=== PATIENT | male | born 1965 | race Caucasian/White ===

== ENCOUNTER 2020-04-07 00:28 | Inpatient (IN) | payer MEDICAID ==
[~2020-04-07] VITALS: Ht 172.7 cm; Wt 90.7 kg
[2020-04-07] MEDS ORDERED: SODIUM CHLORIDE 0.9% 1,000 ML IV ONE (01:01)
[2020-04-07 01:18] LABS: BASOPHILS % 1.4 % (0.0-2.0); EOSINOPHILS % 0.6 % (0.0-5.0); HEMATOCRIT. 39.5 % (42.0-52.0); HEMOGLOBIN. 13.4 g/dL (14.0-18.0); LYMPHOCYTES % 27.6 % (20.0-50.0); MEAN CORPUSCULAR HEMOGLOBIN 30.7 pg (28.0-32.0); MEAN CORPUSCULAR VOLUME 90.4 fL (80.0-94.0); MEAN PLATELET VOLUME 8.6 fl (7.4-10.4); MONOCYTES % 10.1 % (2.0-8.0); NEUTROPHILS % 60.3 % (40.0-76.0); PLATELET 239 x1000/uL (130-400); RED BLOOD CELL COUNT 4.37 mill/uL (4.7-6.1); RED CELL DISTRIBUTION WIDTH 12.6 % (11.6-14.6)
[2020-04-07 01:25] LABS: CHLORIDE 102 mEq/L (98-107)
[2020-04-07 01:44] LABS: D-DIMER 0.35 mg/L FEU (<0.50); INR 1.1; PARTIAL THROMBOPLASTIN TIME 31.5 sec (23.4-31.0); PROTHROMBIN TIME 11.4 sec (9.6-11.0)
[2020-04-07] MEDS ORDERED: AZITHROMYCIN 500 MG in DEXT 5% WATER 250 ML IV ONE (03:00)
[2020-04-07] MEDS ORDERED: ENOXAPARIN 80MG/0.8ML SYR SUBCUT ONE (03:00)
[2020-04-07] MEDS ORDERED: CEFTRIAXONE 1 G PREMIX 50 ML IV ONE (03:00)
[2020-04-07 09:00] VITALS: BP 109/71
[2020-04-07 10:00] VITALS: BP 109/71
[2020-04-07] MEDS ORDERED: GLUCO8 PO (10:00)
[2020-04-07] MEDS ORDERED: SIMV-43 PO (10:00)
[2020-04-07] MEDS ORDERED: GUAIFENESIN 200MG/10ML SUGAR FREE UDC PO PRN (11:45)
[2020-04-07] MEDS ORDERED: DIPHENHYDRAMINE 50MG/ML VIAL IV PRN (11:45)
[2020-04-07] MEDS ORDERED: DEXTROSE 50% WATER 50ML SYRINGE IV PRN (11:45)
[2020-04-07] MEDS ORDERED: MAGNESIUM/ALUMINUM HYDROXIDE/SIMETHICONE 30ML UDC PO PRN (11:45)
[2020-04-07] MEDS ORDERED: ZOLPIDEM TARTRATE 5MG TABLET PO PRN (11:45)
[2020-04-07] MEDS ORDERED: ALBUTEROL 6.7GM HFA INHALER ORI PRN (11:45)
[2020-04-07] MEDS ORDERED: ONDANSETRON HCL 4MG/2ML INJ IV PRN (11:45)
[2020-04-07] MEDS ORDERED: ACETAMINOPHEN 325MG TABLET PO PRN ×2 (11:45)
[2020-04-07] MEDS ORDERED: CLONIDINE 0.1MG TABLET PO PRN (11:45)
[2020-04-07 12:00] VITALS: BP 110/69
[2020-04-07] MEDS: BLOOD SUGAR DIAGNOSTIC STRIP TEST SCH ×3 (12:40→21:17)
[2020-04-07] MEDS: INSULIN LISPRO 100 UNITS/ML SUBCUT SCH ×3 (12:58→21:42)
[2020-04-07] MEDS ORDERED: POTASSIUM CHLORIDE 20MEQ TABLET SR PO NR (13:30)
[2020-04-07] MEDS: ENOXAPARIN 80MG/0.8ML SYR SUBCUT NR ×2 (15:00→15:47)
[2020-04-07] MEDS: LEVOFLOXACIN 500MG PREMIX 100 ML IV SCH (15:20)
[2020-04-07] MEDS: SODIUM CHLORIDE 0.9% INJ 3ML FLUSH IVF SCH ×2 (15:48→21:17)
[2020-04-07 16:00] VITALS: BP 101/76
[2020-04-07] MEDS: METFORMIN HCL 500MG TABLET PO SCH (18:31)
[2020-04-07 20:00] VITALS: BP 116/81
[2020-04-07 20:49] LABS: CLARITY URINE CLEAR (CLEAR); COLOR URINE YELLOW (YELLOW); KETONES URINE TRACE (NEGATIVE); LEUKOCYTE ESTERASE URINE NEGATIVE (NEGATIVE); NITRITE URINE NEGATIVE (NEGATIVE); OCCULT BLOOD URINE NEGATIVE (NEGATIVE); PROTEIN URINE NEGATIVE (NEGATIVE); SPECIFIC GRAVITY URINE 1.015 (1.005-1.030); UROBILINOGEN URINE 0.2 E.U./dL (0.2-1.0)
[2020-04-07 21:04] LABS: *AMPHETAMINES SCREEN URINE NEGATIVE (NEGATIVE); *BARBITURATES SCREEN URINE NEGATIVE (NEGATIVE); *BENZODIAZEPINES SCREEN URINE NEGATIVE (NEGATIVE); *COCAINE SCREEN URINE NEGATIVE (NEGATIVE); METHADONE URINE SCREEN NEGATIVE (NEGATIVE); PHENCYCLIDINE URINE SCREEN NEGATIVE (NEGATIVE)
[2020-04-07 21:14] LABS: OPIATES URINE SCREEN NEGATIVE (NEGATIVE)
[2020-04-07] MEDS: ATORVASTATIN CALCIUM 40MG TABLET PO SCH (21:16)
[2020-04-07] MEDS: FAMOTIDINE 20MG TABLET PO SCH (21:16)
[2020-04-07] MEDS: GUAIFENESIN 600MG ER TABLET PO SCH (21:17)
[2020-04-07 21:18] LABS: CANNABINOID URINE SCREEN NEGATIVE (NEGATIVE)
[2020-04-08] VITALS: BP 110/78
[2020-04-08 04:00] VITALS: BP 100/67
[2020-04-08] MEDS: SODIUM CHLORIDE 0.9% INJ 3ML FLUSH IVF SCH ×3 (05:36→21:17)
[2020-04-08 08:00] VITALS: BP 120/80
[2020-04-08] MEDS: INSULIN LISPRO 100 UNITS/ML SUBCUT SCH ×5 (08:10→21:16)
[2020-04-08] MEDS: BLOOD SUGAR DIAGNOSTIC STRIP TEST SCH ×4 (08:16→21:16)
[2020-04-08] MEDS: METFORMIN HCL 500MG TABLET PO SCH ×2 (08:18→17:49)
[2020-04-08] MEDS: ASPIRIN 81MG EC TABLET PO SCH (08:18)
[2020-04-08] MEDS: GUAIFENESIN 600MG ER TABLET PO SCH ×2 (08:18→21:16)
[2020-04-08] MEDS: FAMOTIDINE 20MG TABLET PO SCH ×2 (08:18→21:16)
[2020-04-08] MEDS ORDERED: ENOXAPARIN 40MG/0.4ML SYR SUBCUT SCH (09:00)
[2020-04-08] MEDS ORDERED: ENOXAPARIN 80MG/0.8ML SYR SUBCUT SCH ×2 (09:00→21:00)
[2020-04-08 09:50] LABS: BASOPHILS % 0.6 % (0.0-2.0); EOSINOPHILS % 0.3 % (0.0-5.0); HEMATOCRIT. 41.4 % (42.0-52.0); HEMOGLOBIN. 14.4 g/dL (14.0-18.0); LYMPHOCYTES % 23.7 % (20.0-50.0); MEAN CORPUSCULAR HEMOGLOBIN 31.3 pg (28.0-32.0); MEAN CORPUSCULAR VOLUME 90.3 fL (80.0-94.0); MEAN PLATELET VOLUME 7.7 fl (7.4-10.4); MONOCYTES % 7.6 % (2.0-8.0); NEUTROPHILS % 67.8 % (40.0-76.0); PLATELET 270 x1000/uL (130-400); RED BLOOD CELL COUNT 4.59 mill/uL (4.7-6.1)
[2020-04-08 09:58] LABS: CHLORIDE 104 mEq/L (98-107)
[2020-04-08 13:08] VITALS: BP 114/76
[2020-04-08] MEDS: LEVOFLOXACIN 500MG PREMIX 100 ML IV SCH (13:16)
[2020-04-08 16:00] VITALS: BP 116/80
[2020-04-08 20:00] VITALS: BP 99/65
[2020-04-08] MEDS ORDERED: GUAIFENESIN 600MG ER TABLET PO SCH (21:00)
[2020-04-08] MEDS: ATORVASTATIN CALCIUM 40MG TABLET PO SCH (21:16)
[2020-04-08] MEDS ORDERED: ALBUTEROL (0.083%) 2.5MG/3ML NEB HHN PRN (22:00)
[2020-04-09] VITALS (8 sets, daily range): BP systolic 97–122; BP diastolic 65–81
[2020-04-09] MEDS ORDERED: ENOXAPARIN 80MG/0.8ML SYR SUBCUT SCH (01:00)
[2020-04-09] MEDS: SODIUM CHLORIDE 0.9% INJ 3ML FLUSH IVF SCH ×3 (05:26→22:00)
[2020-04-09] MEDS: SODIUM CHLORIDE 0.9% 1,000 ML IV SCH ×2 (05:50→20:30)
[2020-04-09] MEDS: BLOOD SUGAR DIAGNOSTIC STRIP TEST SCH ×4 (07:40→20:30)
[2020-04-09 07:46] LABS: BASOPHILS % 0.3 % (0.0-2.0); HEMATOCRIT. 39.4 % (42.0-52.0); HEMOGLOBIN. 13.6 g/dL (14.0-18.0); LYMPHOCYTES % 33.1 % (20.0-50.0); MEAN CORPUSCULAR HEMOGLOBIN 30.8 pg (28.0-32.0); MEAN CORPUSCULAR VOLUME 89.2 fL (80.0-94.0); MONOCYTES % 9.8 % (2.0-8.0); NEUTROPHILS % 55.8 % (40.0-76.0); PLATELET 265 x1000/uL (130-400); RED BLOOD CELL COUNT 4.42 mill/uL (4.7-6.1); RED CELL DISTRIBUTION WIDTH 12.6 % (11.6-14.6)
[2020-04-09] MEDS: INSULIN LISPRO 100 UNITS/ML SUBCUT SCH ×4 (08:10→20:31)
[2020-04-09] MEDS: METFORMIN HCL 500MG TABLET PO SCH ×2 (08:10→17:09)
[2020-04-09 08:21] LABS: CHLORIDE 106 mEq/L (98-107)
[2020-04-09] MEDS: GUAIFENESIN 600MG ER TABLET PO SCH ×2 (09:29→20:30)
[2020-04-09] MEDS: ASPIRIN 81MG EC TABLET PO SCH (09:29)
[2020-04-09] MEDS: FAMOTIDINE 20MG TABLET PO SCH ×2 (09:29→20:30)
[2020-04-09] MEDS ORDERED: IODIXANOL 320MG/ML 100 ML BOTTLE IV ONE (11:58)
[2020-04-09] MEDS ORDERED: MIDAZOLAM HCL 2 MG/2 ML VIAL ONE (11:58)
[2020-04-09] MEDS ORDERED: FENTANYL CITRATE/PF 50MCG/ML 2ML VIAL ONE (11:58)
[2020-04-09] MEDS ORDERED: LIDOCAINE HCL 1% 20ML VIAL (Pyxis) INJ ONE (11:58)
[2020-04-09] MEDS ORDERED: IOHEXOL-300 100 ML BOTTLE ONE (13:14)
[2020-04-09] MEDS ORDERED: CLOPIDOGREL 75MG TABLET ONE (13:20)
[2020-04-09] MEDS ORDERED: HEPARIN SODIUM 1,000 UNIT/1ML VIAL IV ONE (13:31)
[2020-04-09] MEDS ORDERED: ASPIRIN/SOD BICARB/CITRIC ACID 324MG TAB EFF ONE (13:32)
[2020-04-09] MEDS ORDERED: MORPHINE SULFATE 2 MG/ML CPJ (NOT FOR IM USE) IV PRN (13:45)
[2020-04-09] MEDS ORDERED: ACETAMINOPHEN 325MG TABLET PO PRN (13:45)
[2020-04-09] MEDS ORDERED: ONDANSETRON HCL 4MG/2ML INJ IV PRN (13:45)
[2020-04-09] MEDS ORDERED: CLOPIDOGREL 75MG TABLET PO ONE (13:45)
[2020-04-09] MEDS ORDERED: SODIUM CHLORIDE 0.45% 1,000 ML IV ONE (13:45)
[2020-04-09] MEDS ORDERED: ATROPINE SULFATE 1MG/10ML SYR IV PRN (13:45)
[2020-04-09] MEDS: LEVOFLOXACIN 500MG PREMIX 100 ML IV SCH (14:19)
[2020-04-09] MEDS: ATORVASTATIN CALCIUM 40MG TABLET PO SCH (20:30)
[2020-04-10] VITALS (13 sets, daily range): BP systolic 72–124; BP diastolic 24–85
[2020-04-10] MEDS: SODIUM CHLORIDE 0.9% INJ 3ML FLUSH IVF SCH ×2 (06:45→12:16)
[2020-04-10] MEDS: BLOOD SUGAR DIAGNOSTIC STRIP TEST SCH ×3 (06:45→16:50)
[2020-04-10] MEDS: INSULIN LISPRO 100 UNITS/ML SUBCUT SCH ×2 (07:20→12:02)
[2020-04-10 07:48] LABS: BASOPHILS % 0.2 % (0.0-2.0); EOSINOPHILS % 0.9 % (0.0-5.0); HEMATOCRIT. 38.2 % (42.0-52.0); LYMPHOCYTES % 27.7 % (20.0-50.0); MEAN CORPUSCULAR HEMOGLOBIN 30.5 pg (28.0-32.0); MEAN CORPUSCULAR VOLUME 89.4 fL (80.0-94.0); MEAN PLATELET VOLUME 7.7 fl (7.4-10.4); MONOCYTES % 10.3 % (2.0-8.0); NEUTROPHILS % 60.9 % (40.0-76.0); PLATELET 272 x1000/uL (130-400); RED BLOOD CELL COUNT 4.27 mill/uL (4.7-6.1); RED CELL DISTRIBUTION WIDTH 12.8 % (11.6-14.6)
[2020-04-10 08:14] LABS: CHLORIDE 107 mEq/L (98-107)
[2020-04-10] MEDS: GUAIFENESIN 600MG ER TABLET PO SCH (08:14)
[2020-04-10] MEDS: METFORMIN HCL 500MG TABLET PO SCH (08:14)
[2020-04-10] MEDS: FAMOTIDINE 20MG TABLET PO SCH (08:14)
[2020-04-10] MEDS ORDERED: ASPIRIN 325MG TABLET PO SCH (09:00)
[2020-04-10] MEDS ORDERED: CLOPIDOGREL 75MG TABLET PO SCH (09:00)
[2020-04-10] MEDS: SODIUM CHLORIDE 0.9% 1,000 ML IV SCH (09:40)
[2020-04-10] MEDS ORDERED: LEVOFLOXACIN 500MG TABLET PO SCH (11:00)
== END 2020-04-10 16:20 | disposition home or self-care (01) | DRG 174 ==
LOC: ER 00:28 → 7WST 03:34 → ENRESERV 07:28 → ER 08:05 → 5WST 04-08 21:35 → 7WST 04-08 22:47 → 3WST 04-09 13:54
PROVIDERS: ADMIT Internal Medicine; ATTEND Internal Medicine
PROC: 027034Z Dilation of Coronary Artery, One Artery with Drug-eluting Intraluminal Device, Percutaneous Approach (ICD-10-PCS; principal; 2020-04-09)
PROC: 4A023N7 Measurement of Cardiac Sampling and Pressure, Left Heart, Percutaneous Approach (ICD-10-PCS; 2020-04-09)
PROC: B2111ZZ Fluoroscopy of Multiple Coronary Arteries using Low Osmolar Contrast (ICD-10-PCS; 2020-04-09)
PROC: B2151ZZ Fluoroscopy of Left Heart using Low Osmolar Contrast (ICD-10-PCS; 2020-04-09)
DX: I21.4 Non-ST elevation (NSTEMI) myocardial infarction (principal); A41.9 Sepsis, unspecified organism; J18.9 Pneumonia, unspecified organism; E11.9 Type 2 diabetes mellitus without complications; E78.5 Hyperlipidemia, unspecified; E87.6 Hypokalemia; I10 Essential (primary) hypertension; E78.00 Pure hypercholesterolemia, unspecified; I25.10 Atherosclerotic heart disease of native coronary artery without angina pectoris; Z82.49 Family history of ischemic heart disease and other diseases of the circulatory system; I25.2 Old myocardial infarction; Z87.891 Personal history of nicotine dependence; Z79.899 Other long term (current) drug therapy; Z03.818 Encounter for observation for suspected exposure to other biological agents ruled out; Z68.30 Body mass index [BMI] 30.0-30.9, adult
CPT/HCPCS: 36415; 71045; 80048; 80053; 80305; 81003; 82962; 83036; 83605; 83735; 83880; 84443; 84484; 85025; 85347; 85379; 87635; 92928; 93005; 93306; 93458; 99291; C1769; C1874; C1887; C1893; J0456; J0696; J1644; J1650; J1815; J1956; J2250; J3010; J3490; J7030; J7060; Q9967

== ENCOUNTER 2022-04-11 00:40 | Inpatient (IN) | payer MEDICAID ==
[~2022-04-11] VITALS: Ht 170.2 cm; Wt 91.3 kg
[~2022-04-11 00:40] MED LIST: ASPI-1406 PO; ATOR40TA70 MT; CLOP75TA33 MT; FURO-151 MT; FURO20TA4 MT; GLIM4TAB36 MT; GLUCO8 PO; METF-414 PO; POTA-202 MT; SIMV-43 PO
[2022-04-11 02:19] LABS: BASOPHILS % 0.5 % (0.0-2.0); EOSINOPHILS % 0.4 % (0.0-5.0); HEMATOCRIT. 40.1 % (42.0-52.0); HEMOGLOBIN. 13.3 g/dL (14.0-18.0); LYMPHOCYTES % 19.6 % (20.0-50.0); MEAN CORPUSCULAR HEMOGLOBIN 31.3 pg (28.0-32.0); MEAN CORPUSCULAR VOLUME 94.1 fL (80.0-94.0); MEAN PLATELET VOLUME 9.1 fl (7.4-10.4); MONOCYTES % 9.7 % (2.0-8.0); NEUTROPHILS % 69.8 % (40.0-76.0); PLATELET 220 x1000/uL (130-400); RED BLOOD CELL COUNT 4.26 mill/uL (4.7-6.1); RED CELL DISTRIBUTION WIDTH 14.3 % (11.6-14.6)
[2022-04-11 02:21] LABS: CHLORIDE 102 mEq/L (98-107)
[2022-04-11] MEDS ORDERED: ASPIRIN 325MG TABLET PO ONE (02:45)
[2022-04-11 10:20] VITALS: BP 99/78
[2022-04-11] MEDS ORDERED: ACETAMINOPHEN 325MG TABLET PO PRN (10:30)
[2022-04-11] MEDS ORDERED: ONDANSETRON HCL 4MG/2ML INJ IV PRN (10:30)
[2022-04-11] MEDS: FUROSEMIDE 100MG/10ML VIAL IVP SCH ×2 (11:31→17:58)
[2022-04-11] MEDS: CLOPIDOGREL 75MG TABLET PO SCH (11:40)
[2022-04-11] MEDS ORDERED: POTASSIUM CHLORIDE 20MEQ TABLET SR PO SCH (12:00)
[2022-04-11] MEDS ORDERED: DEXTROSE 50% WATER 50ML SYRINGE IV PRN (13:45)
[2022-04-11 16:00] VITALS: BP 105/56
[2022-04-11] MEDS: BLOOD SUGAR DIAGNOSTIC STRIP TEST SCH ×2 (17:44→21:00)
[2022-04-11] MEDS: INSULIN LISPRO 100 UNITS/ML SUBCUT SCH ×2 (18:03→21:00)
[2022-04-11 20:00] VITALS: BP 99/73
[2022-04-11] MEDS: CARVEDILOL 3.125 MG TABLET PO SCH (21:00)
[2022-04-12] VITALS: BP 90/67
[2022-04-12 04:00] VITALS: BP 109/66
[2022-04-12 05:56] LABS: CHLORIDE 104 mEq/L (98-107)
[2022-04-12 06:16] LABS: BASOPHILS % 0.4 % (0.0-2.0); EOSINOPHILS % 0.5 % (0.0-5.0); HEMATOCRIT. 39.5 % (42.0-52.0); HEMOGLOBIN. 12.9 g/dL (14.0-18.0); LYMPHOCYTES % 22.9 % (20.0-50.0); MEAN CORPUSCULAR HEMOGLOBIN 30.7 pg (28.0-32.0); MEAN CORPUSCULAR VOLUME 94.1 fL (80.0-94.0); MEAN PLATELET VOLUME 8.9 fl (7.4-10.4); MONOCYTES % 9.9 % (2.0-8.0); NEUTROPHILS % 66.3 % (40.0-76.0); PLATELET 199 x1000/uL (130-400); RED BLOOD CELL COUNT 4.19 mill/uL (4.7-6.1); RED CELL DISTRIBUTION WIDTH 14.4 % (11.6-14.6)
[2022-04-12] MEDS: BLOOD SUGAR DIAGNOSTIC STRIP TEST SCH ×2 (07:33→12:44)
[2022-04-12] MEDS: INSULIN LISPRO 100 UNITS/ML SUBCUT SCH ×2 (07:33→12:50)
[2022-04-12 08:00] VITALS: BP 108/79
[2022-04-12] MEDS: CARVEDILOL 3.125 MG TABLET PO SCH (08:15)
[2022-04-12] MEDS: FUROSEMIDE 100MG/10ML VIAL IVP SCH (08:23)
[2022-04-12] MEDS: CLOPIDOGREL 75MG TABLET PO SCH (08:24)
[2022-04-12] MEDS ORDERED: ASPIRIN 81MG TABLET PO SCH (09:00)
[2022-04-12] MEDS ORDERED: POTASSIUM CHLORIDE 20MEQ TABLET SR PO SCH (09:00)
[2022-04-12 12:00] VITALS: BP 98/78
[2022-04-12] MEDS ORDERED: POTASSIUM CHLORIDE 20MEQ TABLET SR PO NR (13:30)
[2022-04-12] MEDS ORDERED: COR3 PO (16:22)
[2022-04-12] MEDS ORDERED: LOSA25TA26 MT (16:22)
[2022-04-12] MEDS ORDERED: FURO40TA5 PO (16:22)
[2022-04-12] MEDS ORDERED: POTA-204 PO (16:22)
[2022-04-12] MEDS ORDERED: APIX5TAB PO (16:22)
[2022-04-12] MEDS ORDERED: APIXABAN 5 MG TABLET PO SCH (17:00)
[2022-04-12 17:47] VITALS: BP 111/84
[2022-04-12] MEDS ORDERED: FUROSEMIDE 40MG TABLET PO SCH (21:00)
== END 2022-04-12 18:25 | disposition home or self-care (01) | DRG 194 ==
LOC: ER 00:40 → 7WST 05:02 → ENRESERV 07:44
PROVIDERS: ADMIT Internal Medicine; ATTEND Internal Medicine
DX: I11.0 Hypertensive heart disease with heart failure (principal); I42.9 Cardiomyopathy, unspecified; I95.89 Other hypotension; Z79.01 Long term (current) use of anticoagulants; I50.23 Acute on chronic systolic (congestive) heart failure; I50.82 Biventricular heart failure; I48.91 Unspecified atrial fibrillation; I34.0 Nonrheumatic mitral (valve) insufficiency; E11.9 Type 2 diabetes mellitus without complications; I25.10 Atherosclerotic heart disease of native coronary artery without angina pectoris; E78.00 Pure hypercholesterolemia, unspecified; E66.9 Obesity, unspecified; Z68.31 Body mass index [BMI] 31.0-31.9, adult; Z20.828 Contact with and (suspected) exposure to other viral communicable diseases; Z20.822 Contact with and (suspected) exposure to COVID-19; I25.2 Old myocardial infarction; Z95.5 Presence of coronary angioplasty implant and graft; Z82.49 Family history of ischemic heart disease and other diseases of the circulatory system
CPT/HCPCS: 36415; 71045; 80048; 80053; 82962; 83036; 83880; 84484; 85025; 87426; 93005; 93306; 99285; C9803; J1815; J1940

== ENCOUNTER 2022-05-02 11:14 | Inpatient (IN) | payer MEDICAID ==
[~2022-05-02] VITALS: Ht 170.2 cm; Wt 80.3 kg
[~2022-05-02 11:14] MED LIST changes: +APIX5TAB PO; +CALC-769 PO; +COR3 PO; -FURO-151 MT; -FURO20TA4 MT; +FURO40TA5 PO; -GLUCO8 PO; +LOSA25TA26 MT; -POTA-202 MT; +POTA-204 PO; -SIMV-43 PO; +SITA50TA3 PO
[2022-05-02] MEDS ORDERED: NITROGLYCERIN 0.4MG TABLET SL SL PRN (11:45)
[2022-05-02] MEDS ORDERED: FUROSEMIDE 40MG/4ML VIAL IV ONE (11:45)
[2022-05-02 11:58] LABS: BASOPHILS % 0.3 % (0.0-2.0); EOSINOPHILS % 0.3 % (0.0-5.0); HEMATOCRIT. 40.9 % (42.0-52.0); HEMOGLOBIN. 13.5 g/dL (14.0-18.0); LYMPHOCYTES % 17.2 % (20.0-50.0); MEAN CORPUSCULAR HEMOGLOBIN 31.3 pg (28.0-32.0); MEAN CORPUSCULAR VOLUME 94.7 fL (80.0-94.0); MEAN PLATELET VOLUME 8.6 fl (7.4-10.4); MONOCYTES % 9.5 % (2.0-8.0); NEUTROPHILS % 72.7 % (40.0-76.0); PLATELET 200 x1000/uL (130-400); RED BLOOD CELL COUNT 4.32 mill/uL (4.7-6.1); RED CELL DISTRIBUTION WIDTH 15.4 % (11.6-14.6)
[2022-05-02] MEDS ORDERED: DILTIAZEM HCL 5MG/ML 5ML VIAL IV ONE ×2 (12:00→15:30)
[2022-05-02 12:03] LABS: CHLORIDE 102 mEq/L (98-107)
[2022-05-02] MEDS ORDERED: IPRATROPIUM/ALBUTEROL 0.5-3(2.5)MG/3ML NEB HHN PRN (14:15)
[2022-05-02] MEDS ORDERED: CLONIDINE 0.1MG TABLET PO PRN (14:15)
[2022-05-02] MEDS ORDERED: ACETAMINOPHEN 325MG TABLET PO PRN (14:15)
[2022-05-02] MEDS ORDERED: ONDANSETRON HCL 4MG/2ML INJ IV PRN (14:15)
[2022-05-02] MEDS ORDERED: ENOXAPARIN 40MG/0.4ML SYR SUBCUT SCH (15:00)
[2022-05-02] MEDS ORDERED: FUROSEMIDE 40MG/4ML VIAL IV SCH (15:00)
[2022-05-02 15:41] LABS: CHLORIDE 102 mEq/L (98-107)
[2022-05-02] MEDS ORDERED: DOCUSATE SODIUM 100MG CAPSULE PO PRN (15:45)
[2022-05-02] MEDS: ATORVASTATIN CALCIUM 40MG TABLET PO SCH (16:14)
[2022-05-02] MEDS: PANTOPRAZOLE 40MG DR TABLET PO SCH (16:15)
[2022-05-02] MEDS: METFORMIN HCL 500MG TABLET PO SCH (19:00)
[2022-05-02] MEDS: CLOPIDOGREL 75MG TABLET PO SCH (19:00)
[2022-05-02] MEDS: ASPIRIN 81MG EC TABLET PO SCH (19:00)
[2022-05-02] MEDS: APIXABAN 5 MG TABLET PO SCH (19:00)
[2022-05-02] MEDS: LOSARTAN POTASSIUM 25 MG TABLET PO SCH (19:00)
[2022-05-02] MEDS: FUROSEMIDE 40MG/4ML VIAL IV SCH (19:13)
[2022-05-02] MEDS ORDERED: DILTIAZEM HCL 30MG TABLET PO SCH (21:00)
[2022-05-02] MEDS ORDERED: DILTIAZEM HCL 5MG/ML 5ML VIAL IV SCH (22:00)
[2022-05-02 22:26] VITALS: BP 94/70
[2022-05-03] VITALS (7 sets, daily range): BP systolic 94–106; BP diastolic 64–77
[2022-05-03] MEDS: GUAIFENESIN 200MG/10ML SUGAR FREE UDC PO PRN (00:14)
[2022-05-03] MEDS ORDERED: DEXTROSE 50% WATER 50ML SYRINGE IV PRN (06:00)
[2022-05-03 06:28] LABS: BASOPHILS % 0.2 % (0.0-2.0); EOSINOPHILS % 0.3 % (0.0-5.0); HEMATOCRIT. 38.6 % (42.0-52.0); HEMOGLOBIN. 12.8 g/dL (14.0-18.0); LYMPHOCYTES % 20.7 % (20.0-50.0); MEAN CORPUSCULAR HEMOGLOBIN 31.6 pg (28.0-32.0); MEAN CORPUSCULAR VOLUME 95.2 fL (80.0-94.0); MONOCYTES % 9.8 % (2.0-8.0); PLATELET 198 x1000/uL (130-400); RED BLOOD CELL COUNT 4.06 mill/uL (4.7-6.1); RED CELL DISTRIBUTION WIDTH 15.6 % (11.6-14.6)
[2022-05-03 06:53] LABS: T4 FREE 1.47 ng/dL (0.76-1.46)
[2022-05-03] MEDS: BLOOD SUGAR DIAGNOSTIC STRIP TEST SCH ×4 (07:32→21:00)
[2022-05-03] MEDS: FUROSEMIDE 40MG/4ML VIAL IV SCH (08:41)
[2022-05-03] MEDS: LOSARTAN POTASSIUM 25 MG TABLET PO SCH (08:41)
[2022-05-03] MEDS: APIXABAN 5 MG TABLET PO SCH ×2 (08:42→18:23)
[2022-05-03] MEDS: PANTOPRAZOLE 40MG DR TABLET PO SCH (08:42)
[2022-05-03] MEDS: METFORMIN HCL 500MG TABLET PO SCH (08:42)
[2022-05-03] MEDS: ASPIRIN 81MG EC TABLET PO SCH (08:43)
[2022-05-03] MEDS: ATORVASTATIN CALCIUM 40MG TABLET PO SCH (08:43)
[2022-05-03] MEDS: CLOPIDOGREL 75MG TABLET PO SCH (08:43)
[2022-05-03] MEDS: INSULIN LISPRO 100 UNITS/ML SUBCUT SCH ×4 (08:51→20:32)
[2022-05-03] MEDS: METOPROLOL TARTRATE 25MG TABLET PO SCH ×2 (08:52→20:31)
[2022-05-03] MEDS ORDERED: BUMETANIDE 1MG/4ML VIAL IV SCH (10:15)
[2022-05-03] MEDS ORDERED: NON FORMULARY PATIENT HOME MED XX SCH (20:00)
[2022-05-03] MEDS: BUMETANIDE 1MG/4ML VIAL IV SCH (20:24)
[2022-05-04] VITALS (7 sets, daily range): BP systolic 85–103; BP diastolic 51–74
[2022-05-04 06:21] LABS: HEMOGLOBIN 13.3 g/dL (14.0-18.0); MEAN CORPUSCULAR HEMOGLOBIN 31.5 pg (28.0-32.0); MEAN CORPUSCULAR VOLUME 94.7 fL (80.0-94.0); PLATELET 194 x1000/uL (130-400); RED BLOOD CELL COUNT 4.22 mill/uL (4.7-6.1); RED CELL DISTRIBUTION WIDTH 15.3 % (11.6-14.6)
[2022-05-04 06:38] LABS: CHLORIDE 102 mEq/L (98-107)
[2022-05-04 06:44] LABS: PHOSPHORUS 3.9 mg/dL (2.5-4.9)
[2022-05-04] MEDS: BLOOD SUGAR DIAGNOSTIC STRIP TEST SCH ×4 (07:20→20:58)
[2022-05-04] MEDS: ASPIRIN 81MG EC TABLET PO SCH (08:16)
[2022-05-04] MEDS: APIXABAN 5 MG TABLET PO SCH ×2 (08:16→16:41)
[2022-05-04] MEDS: METFORMIN HCL 500MG TABLET PO SCH (08:16)
[2022-05-04] MEDS: CLOPIDOGREL 75MG TABLET PO SCH (08:16)
[2022-05-04] MEDS: LINAGLIPTIN 5MG TABLET PO SCH (08:16)
[2022-05-04] MEDS: FAMOTIDINE 20MG TABLET PO SCH ×2 (08:16→16:41)
[2022-05-04] MEDS: INSULIN LISPRO 100 UNITS/ML SUBCUT SCH ×4 (08:17→20:59)
[2022-05-04] MEDS: ATORVASTATIN CALCIUM 40MG TABLET PO SCH (08:17)
[2022-05-04] MEDS: GLIMEPIRIDE 2MG TABLET PO SCH (08:17)
[2022-05-04] MEDS: METOPROLOL TARTRATE 25MG TABLET PO SCH ×2 (08:23→20:59)
[2022-05-04] MEDS: LOSARTAN POTASSIUM 25 MG TABLET PO SCH (08:23)
[2022-05-04] MEDS: BUMETANIDE 1MG/4ML VIAL IV SCH ×3 (08:23→16:41)
[2022-05-04] MEDS: GUAIFENESIN 200MG/10ML SUGAR FREE UDC PO PRN (21:03)
[2022-05-05] VITALS (8 sets, daily range): BP systolic 93–116; BP diastolic 46–70
[2022-05-05 06:40] LABS: MEAN CORPUSCULAR HEMOGLOBIN 31.6 pg (28.0-32.0); MEAN CORPUSCULAR VOLUME 94.6 fL (80.0-94.0); PLATELET 187 x1000/uL (130-400); RED BLOOD CELL COUNT 4.12 mill/uL (4.7-6.1); RED CELL DISTRIBUTION WIDTH 15.9 % (11.6-14.6)
[2022-05-05 06:58] LABS: CHLORIDE 103 mEq/L (98-107)
[2022-05-05] MEDS: GLIMEPIRIDE 2MG TABLET PO SCH (07:30)
[2022-05-05] MEDS: INSULIN LISPRO 100 UNITS/ML SUBCUT SCH ×4 (07:46→22:16)
[2022-05-05] MEDS: BLOOD SUGAR DIAGNOSTIC STRIP TEST SCH ×4 (07:46→20:59)
[2022-05-05] MEDS: LOSARTAN POTASSIUM 25 MG TABLET PO SCH (07:47)
[2022-05-05] MEDS: LINAGLIPTIN 5MG TABLET PO SCH (07:48)
[2022-05-05] MEDS: METOPROLOL TARTRATE 25MG TABLET PO SCH ×2 (07:48→21:00)
[2022-05-05] MEDS: CLOPIDOGREL 75MG TABLET PO SCH (07:48)
[2022-05-05] MEDS: APIXABAN 5 MG TABLET PO SCH ×3 (07:48→17:26)
[2022-05-05] MEDS: METFORMIN HCL 500MG TABLET PO SCH (07:48)
[2022-05-05] MEDS: ASPIRIN 81MG EC TABLET PO SCH (07:48)
[2022-05-05] MEDS: FAMOTIDINE 20MG TABLET PO SCH ×2 (07:48→17:26)
[2022-05-05] MEDS ORDERED: LIDOCAINE HCL 2% JELLY 5ML ONE ×2 (08:10→08:42)
[2022-05-05] MEDS ORDERED: TETRACAINE/BENZOCAINE/BUTAMBEN 20 GM SPRAY MM ONE (08:11)
[2022-05-05] MEDS ORDERED: PROPOFOL 200MG/20ML VIAL IV ONE (08:22)
[2022-05-05] MEDS: BUMETANIDE 1MG/4ML VIAL IV SCH ×2 (08:48→17:27)
[2022-05-05] MEDS ORDERED: PHENYLEPHRINE 100MCG/ML 10ML VIAL (CATH LAB) ONE (09:00)
[2022-05-05] MEDS ORDERED: AMIODARONE HCL 50MG/ML 3ML VIAL IV ONE (09:03)
[2022-05-05] MEDS: FUROSEMIDE 20MG/2ML VIAL IVP NR ×2 (10:09→10:17)
[2022-05-05] MEDS ORDERED: FUROSEMIDE 20MG/2ML VIAL IVP NR (10:15)
[2022-05-05] MEDS ORDERED: BUMETANIDE 2.5MG/10ML VIAL IV NR (10:15)
[2022-05-05] MEDS ORDERED: ONDANSETRON HCL 4MG/2ML INJ IV PRN (10:15)
[2022-05-05] MEDS: AMIODARONE HCL 200 MG TABLET PO SCH (17:27)
[2022-05-05] MEDS: ATORVASTATIN CALCIUM 40MG TABLET PO SCH (22:11)
[2022-05-06] VITALS (25 sets, daily range): BP systolic 67–107; BP diastolic 35–73
[2022-05-06 04:59] LABS: HEMATOCRIT 39.2 % (42.0-52.0); HEMOGLOBIN 12.8 g/dL (14.0-18.0); MEAN CORPUSCULAR HEMOGLOBIN 31.2 pg (28.0-32.0); MEAN CORPUSCULAR VOLUME 95.5 fL (80.0-94.0); PLATELET 190 x1000/uL (130-400); RED CELL DISTRIBUTION WIDTH 16.1 % (11.6-14.6)
[2022-05-06 05:14] LABS: PHOSPHORUS 4.8 mg/dL (2.5-4.9)
[2022-05-06] MEDS: BLOOD SUGAR DIAGNOSTIC STRIP TEST SCH ×4 (07:22→20:23)
[2022-05-06] MEDS: LINAGLIPTIN 5MG TABLET PO SCH (08:29)
[2022-05-06] MEDS: AMIODARONE HCL 200 MG TABLET PO SCH ×2 (08:29→17:00)
[2022-05-06] MEDS: FAMOTIDINE 20MG TABLET PO SCH ×2 (08:30→17:57)
[2022-05-06] MEDS: LOSARTAN POTASSIUM 25 MG TABLET PO SCH (08:30)
[2022-05-06] MEDS: APIXABAN 5 MG TABLET PO SCH ×2 (08:30→17:57)
[2022-05-06] MEDS: METFORMIN HCL 500MG TABLET PO SCH (08:30)
[2022-05-06] MEDS: ASPIRIN 81MG EC TABLET PO SCH (08:30)
[2022-05-06] MEDS: GLIMEPIRIDE 2MG TABLET PO SCH (08:30)
[2022-05-06] MEDS: CLOPIDOGREL 75MG TABLET PO SCH (08:30)
[2022-05-06] MEDS: BUMETANIDE 1MG/4ML VIAL IV SCH (08:31)
[2022-05-06] MEDS: METOPROLOL TARTRATE 25MG TABLET PO SCH (08:31)
[2022-05-06] MEDS: INSULIN LISPRO 100 UNITS/ML SUBCUT SCH ×4 (08:34→20:23)
[2022-05-06] MEDS ORDERED: METOPROLOL SUCCINATE 50MG ER TABLET PO SCH (11:00)
[2022-05-06] MEDS: GUAIFENESIN 200MG/10ML SUGAR FREE UDC PO PRN (15:48)
[2022-05-06] MEDS: ATORVASTATIN CALCIUM 40MG TABLET PO SCH (20:49)
[2022-05-07] VITALS (44 sets, daily range): BP systolic 64–124; BP diastolic 43–91
[2022-05-07 06:55] LABS: HEMATOCRIT 41.2 % (42.0-52.0); HEMOGLOBIN 13.3 g/dL (14.0-18.0); MEAN CORPUSCULAR HEMOGLOBIN 31.1 pg (28.0-32.0); PLATELET 187 x1000/uL (130-400); RED BLOOD CELL COUNT 4.29 mill/uL (4.7-6.1); RED CELL DISTRIBUTION WIDTH 16.5 % (11.6-14.6)
[2022-05-07] MEDS: BLOOD SUGAR DIAGNOSTIC STRIP TEST SCH ×4 (07:30→21:00)
[2022-05-07] MEDS: AMIODARONE HCL 200 MG TABLET PO SCH ×2 (09:00→16:43)
[2022-05-07] MEDS: LOSARTAN POTASSIUM 25 MG TABLET PO SCH (09:00)
[2022-05-07] MEDS: METFORMIN HCL 500MG TABLET PO SCH (09:00)
[2022-05-07] MEDS: APIXABAN 5 MG TABLET PO SCH ×2 (09:00→17:00)
[2022-05-07] MEDS: CLOPIDOGREL 75MG TABLET PO SCH (09:48)
[2022-05-07] MEDS: FAMOTIDINE 20MG TABLET PO SCH ×2 (09:48→17:45)
[2022-05-07] MEDS: ASPIRIN 81MG EC TABLET PO SCH (09:49)
[2022-05-07] MEDS: LINAGLIPTIN 5MG TABLET PO SCH (09:50)
[2022-05-07] MEDS: GLIMEPIRIDE 2MG TABLET PO SCH (09:50)
[2022-05-07] MEDS: INSULIN LISPRO 100 UNITS/ML SUBCUT SCH ×4 (11:12→21:29)
[2022-05-07] MEDS ORDERED: NON FORMULARY PATIENT HOME MED XX SCH (14:00)
[2022-05-07] MEDS: NOREPINEPHRINE 32 MG in DEXT 5% WATER 218 ML IV PRN (16:33)
[2022-05-07 18:39] LABS: INR 3.7; PARTIAL THROMBOPLASTIN TIME 36.6 sec (23.4-31.0); PROTHROMBIN TIME 36.2 sec (9.6-11.0)
[2022-05-07] MEDS ORDERED: HEPARIN 5000 UNITS/ML VIAL IV SCH (19:07)
[2022-05-07] MEDS ORDERED: DOBUTAMINE 250MG PREMIX 250 ML IV SCH (20:45)
[2022-05-07] MEDS: ATORVASTATIN CALCIUM 40MG TABLET PO SCH (21:28)
[2022-05-07] MEDS: DOBUTAMINE 500MG PREMIX 250 ML IV SCH (22:13)
[2022-05-08] VITALS (90 sets, daily range): BP systolic 68–142; BP diastolic 33–102
[2022-05-08] MEDS ORDERED: HEPARIN 5000 UNITS/ML VIAL IV PRN (01:00)
[2022-05-08 05:22] LABS: HEMATOCRIT 37.7 % (42.0-52.0); HEMOGLOBIN 12.7 g/dL (14.0-18.0); MEAN CORPUSCULAR HEMOGLOBIN 31.6 pg (28.0-32.0); MEAN CORPUSCULAR VOLUME 94.1 fL (80.0-94.0); PLATELET 153 x1000/uL (130-400); RED BLOOD CELL COUNT 4.01 mill/uL (4.7-6.1); RED CELL DISTRIBUTION WIDTH 16.2 % (11.6-14.6)
[2022-05-08 05:30] LABS: CHLORIDE 105 mEq/L (98-107)
[2022-05-08 05:32] LABS: INR 2.7; PARTIAL THROMBOPLASTIN TIME 33.3 sec (23.4-31.0)
[2022-05-08] MEDS: GLIMEPIRIDE 2MG TABLET PO SCH (07:50)
[2022-05-08] MEDS: INSULIN LISPRO 100 UNITS/ML SUBCUT SCH ×4 (08:00→21:11)
[2022-05-08] MEDS: BLOOD SUGAR DIAGNOSTIC STRIP TEST SCH ×4 (08:00→21:11)
[2022-05-08] MEDS: LOSARTAN POTASSIUM 25 MG TABLET PO SCH (08:03)
[2022-05-08] MEDS: LINAGLIPTIN 5MG TABLET PO SCH (08:11)
[2022-05-08] MEDS: ASPIRIN 81MG EC TABLET PO SCH (08:41)
[2022-05-08] MEDS: FAMOTIDINE 20MG TABLET PO SCH ×2 (08:41→17:47)
[2022-05-08] MEDS: CLOPIDOGREL 75MG TABLET PO SCH (08:41)
[2022-05-08] MEDS: AMIODARONE HCL 200 MG TABLET PO SCH ×2 (08:41→16:39)
[2022-05-08 08:59] LABS: BG CARBOXYHEMOGLOBIN 0.6 % (0.5-1.5); BG DEOXYHEMOGLOBIN 60.8 % (0.0-5.0); BG HCO3 ACT 30.5 mmol/L (22.0-26.0); BG METHEMOGLOBIN 0.3 % (0.0-1.5); BG OXYGEN SATURATION 38.6 % (92.0-98.5); BG OXYHEMOGLOBIN 38.3 % (94.0-97.0); BG PCO2 48.7 mmHg (35.0-45.0); BG PH 7.415 (7.350-7.450); BG PO2 < 30.3 mmHg (75.0-100.0); BG SAMPLE SITE CL; BG TOTAL HEMOGLOBIN 13.6 g/dL (12.0-18.0); BG VENT MODE ROOM AIR
[2022-05-08] MEDS ORDERED: BUMETANIDE 1MG/4ML VIAL IV SCH (09:00)
[2022-05-08] MEDS ORDERED: POTASSIUM CHLORIDE 20MEQ/PACKET PO SCH (09:00)
[2022-05-08 12:24] LABS: BG BASE EXCESS 3.1 mmol/L (-2.0-2.0); BG CARBOXYHEMOGLOBIN 0.6 % (0.5-1.5); BG DEOXYHEMOGLOBIN 26.9 % (0.0-5.0); BG FRACTION INSPIRED OXYGEN 21; BG HCO3 ACT 26.8 mmol/L (22.0-26.0); BG METHEMOGLOBIN 0.1 % (0.0-1.5); BG OXYGEN SATURATION 72.9 % (92.0-98.5); BG OXYHEMOGLOBIN 72.4 % (94.0-97.0); BG PCO2 37.9 mmHg (35.0-45.0); BG PH 7.467 (7.350-7.450); BG PO2 39.4 mmHg (75.0-100.0); BG SAMPLE SITE CL; BG TOTAL HEMOGLOBIN 13.9 g/dL (12.0-18.0); BG VENT MODE ROOM AIR
[2022-05-08 14:55] LABS: BG BASE EXCESS 5.5 mmol/L (-2.0-2.0); BG CARBOXYHEMOGLOBIN 0.9 % (0.5-1.5); BG DEOXYHEMOGLOBIN 25.3 % (0.0-5.0); BG FRACTION INSPIRED OXYGEN 21; BG HCO3 ACT 30.2 mmol/L (22.0-26.0); BG METHEMOGLOBIN 0.4 % (0.0-1.5); BG OXYGEN SATURATION 74.4 % (92.0-98.5); BG OXYHEMOGLOBIN 73.4 % (94.0-97.0); BG PCO2 44.3 mmHg (35.0-45.0); BG PH 7.452 (7.350-7.450); BG PO2 39.5 mmHg (75.0-100.0); BG SAMPLE SITE CL; BG TOTAL HEMOGLOBIN 13.9 g/dL (12.0-18.0); BG VENT MODE ROOM AIR
[2022-05-08 16:27] LABS: BG BASE EXCESS 2.4 mmol/L (-2.0-2.0); BG CARBOXYHEMOGLOBIN 0.5 % (0.5-1.5); BG DEOXYHEMOGLOBIN 49.2 % (0.0-5.0); BG FRACTION INSPIRED OXYGEN 21; BG HCO3 ACT 26.2 mmol/L (22.0-26.0); BG METHEMOGLOBIN 0.6 % (0.0-1.5); BG OXYGEN SATURATION 50.3 % (92.0-98.5); BG OXYHEMOGLOBIN 49.7 % (94.0-97.0); BG PCO2 38.1 mmHg (35.0-45.0); BG PH 7.456 (7.350-7.450); BG PO2 < 30.3 mmHg (75.0-100.0); BG SAMPLE SITE CL; BG TOTAL HEMOGLOBIN 14.1 g/dL (12.0-18.0); BG VENT MODE ROOM AIR
[2022-05-08] MEDS: NOREPINEPHRINE 32 MG in DEXT 5% WATER 218 ML IV PRN (16:28)
[2022-05-08 17:02] LABS: INR 2.2; PARTIAL THROMBOPLASTIN TIME 31.4 sec (23.4-31.0); PROTHROMBIN TIME 22.4 sec (9.6-11.0)
[2022-05-08] MEDS: HEPARIN 25,000 UNITS PREMIX 250 ML IV PRN (18:46)
[2022-05-08] MEDS: DOBUTAMINE 500MG PREMIX 250 ML IV SCH (20:45)
[2022-05-08] MEDS: ATORVASTATIN CALCIUM 40MG TABLET PO SCH (21:09)
[2022-05-09] VITALS (94 sets, daily range): BP systolic 69–141; BP diastolic 25–102
[2022-05-09] MEDS: DOBUTAMINE 500MG PREMIX 250 ML IV SCH ×2 (02:50→20:00)
[2022-05-09 06:12] LABS: BASOPHILS % 0.2 % (0.0-2.0); EOSINOPHILS % 0.3 % (0.0-5.0); HEMOGLOBIN. 13.8 g/dL (14.0-18.0); LYMPHOCYTES % 19.3 % (20.0-50.0); MEAN CORPUSCULAR HEMOGLOBIN 31.4 pg (28.0-32.0); MEAN CORPUSCULAR VOLUME 95.2 fL (80.0-94.0); MEAN PLATELET VOLUME 8.5 fl (7.4-10.4); MONOCYTES % 11.4 % (2.0-8.0); NEUTROPHILS % 68.8 % (40.0-76.0); PLATELET 179 x1000/uL (130-400); RED BLOOD CELL COUNT 4.41 mill/uL (4.7-6.1); RED CELL DISTRIBUTION WIDTH 16.3 % (11.6-14.6)
[2022-05-09] MEDS: HEPARIN 5000 UNITS/ML VIAL IV PRN (06:12)
[2022-05-09 06:20] LABS: CHLORIDE 106 mEq/L (98-107)
[2022-05-09 06:22] LABS: INR 1.8; PROTHROMBIN TIME 18.4 sec (9.6-11.0)
[2022-05-09 06:42] LABS: HDL CHOLESTEROL 20 mg/dL (40-59); LDL CHOLESTEROL 56 mg/dL (5-100)
[2022-05-09] MEDS: GLIMEPIRIDE 2MG TABLET PO SCH (07:50)
[2022-05-09] MEDS: BLOOD SUGAR DIAGNOSTIC STRIP TEST SCH ×4 (08:06→21:11)
[2022-05-09] MEDS: LINAGLIPTIN 5MG TABLET PO SCH (08:27)
[2022-05-09] MEDS: LOSARTAN POTASSIUM 25 MG TABLET PO SCH (08:37)
[2022-05-09 08:40] LABS: BG BASE EXCESS 3.6 mmol/L (-2.0-2.0); BG CARBOXYHEMOGLOBIN 1.1 % (0.5-1.5); BG DEOXYHEMOGLOBIN 41.7 % (0.0-5.0); BG HCO3 ACT 27.5 mmol/L (22.0-26.0); BG METHEMOGLOBIN 0.2 % (0.0-1.5); BG OXYGEN SATURATION 57.8 % (92.0-98.5); BG PCO2 39.3 mmHg (35.0-45.0); BG PH 7.463 (7.350-7.450); BG PO2 < 30.3 mmHg (75.0-100.0); BG SAMPLE SITE CL; BG TOTAL HEMOGLOBIN 14.5 g/dL (12.0-18.0); BG VENT MODE ROOM AIR
[2022-05-09] MEDS: AMIODARONE HCL 200 MG TABLET PO SCH ×2 (08:42→17:21)
[2022-05-09] MEDS: ASPIRIN 81MG EC TABLET PO SCH (08:42)
[2022-05-09] MEDS: CLOPIDOGREL 75MG TABLET PO SCH (08:42)
[2022-05-09] MEDS: INSULIN LISPRO 100 UNITS/ML SUBCUT SCH ×4 (08:43→21:38)
[2022-05-09] MEDS: FAMOTIDINE 20MG TABLET PO SCH ×2 (08:44→17:21)
[2022-05-09 13:10] LABS: BG BASE EXCESS 2.4 mmol/L (-2.0-2.0); BG CARBOXYHEMOGLOBIN 1.2 % (0.5-1.5); BG DEOXYHEMOGLOBIN 46.4 % (0.0-5.0); BG FRACTION INSPIRED OXYGEN 21; BG HCO3 ACT 27.1 mmol/L (22.0-26.0); BG METHEMOGLOBIN 0.3 % (0.0-1.5); BG OXYGEN SATURATION 52.9 % (92.0-98.5); BG OXYHEMOGLOBIN 52.1 % (94.0-97.0); BG PCO2 42.6 mmHg (35.0-45.0); BG PH 7.422 (7.350-7.450); BG PO2 < 30.3 mmHg (75.0-100.0); BG SAMPLE SITE CL; BG TOTAL HEMOGLOBIN 14.5 g/dL (12.0-18.0); BG VENT MODE ROOM AIR
[2022-05-09] MEDS ORDERED: BUMETANIDE 1MG/4ML VIAL IV NR (15:30)
[2022-05-09] MEDS: HEPARIN 25,000 UNITS PREMIX 250 ML IV PRN (15:43)
[2022-05-09] MEDS: NOREPINEPHRINE 32 MG in DEXT 5% WATER 218 ML IV PRN (18:51)
[2022-05-09] MEDS: ATORVASTATIN CALCIUM 40MG TABLET PO SCH (21:30)
[2022-05-10] VITALS (80 sets, daily range): BP systolic 82–128; BP diastolic 49–90
[2022-05-10 02:34] LABS: INR 1.6; PARTIAL THROMBOPLASTIN TIME 49.3 sec (23.4-31.0); PROTHROMBIN TIME 16.2 sec (9.6-11.0)
[2022-05-10] MEDS: INSULIN LISPRO 100 UNITS/ML SUBCUT SCH ×4 (08:20→21:15)
[2022-05-10] MEDS: BLOOD SUGAR DIAGNOSTIC STRIP TEST SCH ×4 (08:42→21:15)
[2022-05-10] MEDS: AMIODARONE HCL 200 MG TABLET PO SCH ×2 (08:43→16:39)
[2022-05-10] MEDS: ASPIRIN 81MG EC TABLET PO SCH (08:43)
[2022-05-10] MEDS: GLIMEPIRIDE 2MG TABLET PO SCH (08:43)
[2022-05-10] MEDS: CLOPIDOGREL 75MG TABLET PO SCH (08:43)
[2022-05-10] MEDS: LINAGLIPTIN 5MG TABLET PO SCH (08:43)
[2022-05-10] MEDS: FAMOTIDINE 20MG TABLET PO SCH ×2 (08:43→16:39)
[2022-05-10] MEDS: LOSARTAN POTASSIUM 25 MG TABLET PO SCH (08:46)
[2022-05-10] MEDS: HEPARIN 25,000 UNITS PREMIX 250 ML IV PRN (11:30)
[2022-05-10 15:52] LABS: BG BASE EXCESS 1.6 mmol/L (-2.0-2.0); BG CARBOXYHEMOGLOBIN 1.1 % (0.5-1.5); BG DEOXYHEMOGLOBIN 39.2 % (0.0-5.0); BG FRACTION INSPIRED OXYGEN 21; BG HCO3 ACT 25.9 mmol/L (22.0-26.0); BG METHEMOGLOBIN 0.3 % (0.0-1.5); BG OXYGEN SATURATION 60.2 % (92.0-98.5); BG OXYHEMOGLOBIN 59.4 % (94.0-97.0); BG PCO2 39.5 mmHg (35.0-45.0); BG PH 7.434 (7.350-7.450); BG PO2 31.6 mmHg (75.0-100.0); BG SAMPLE SITE CL; BG TOTAL HEMOGLOBIN 14.5 g/dL (12.0-18.0); BG VENT MODE ROOM AIR
[2022-05-10 16:03] LABS: CHLORIDE 106 mEq/L (98-107)
[2022-05-10] MEDS: ATORVASTATIN CALCIUM 40MG TABLET PO SCH (21:11)
[2022-05-10] MEDS: DOBUTAMINE 500MG PREMIX 250 ML IV SCH (22:42)
[2022-05-11] VITALS (71 sets, daily range): BP systolic 82–127; BP diastolic 56–92
[2022-05-11 06:16] LABS: BASOPHILS % 0.4 % (0.0-2.0); EOSINOPHILS % 0.3 % (0.0-5.0); HEMATOCRIT. 45.5 % (42.0-52.0); HEMOGLOBIN. 14.9 g/dL (14.0-18.0); LYMPHOCYTES % 20.5 % (20.0-50.0); MEAN CORPUSCULAR HEMOGLOBIN 31.1 pg (28.0-32.0); MEAN CORPUSCULAR VOLUME 95.3 fL (80.0-94.0); MEAN PLATELET VOLUME 9.2 fl (7.4-10.4); MONOCYTES % 11.5 % (2.0-8.0); NEUTROPHILS % 67.3 % (40.0-76.0); PLATELET 163 x1000/uL (130-400); RED BLOOD CELL COUNT 4.78 mill/uL (4.7-6.1); RED CELL DISTRIBUTION WIDTH 16.9 % (11.6-14.6)
[2022-05-11 06:37] LABS: CHLORIDE 106 mEq/L (98-107)
[2022-05-11 06:43] LABS: INR 1.4; PARTIAL THROMBOPLASTIN TIME 31.4 sec (23.4-31.0); PROTHROMBIN TIME 15.1 sec (9.6-11.0)
[2022-05-11] MEDS: BLOOD SUGAR DIAGNOSTIC STRIP TEST SCH ×2 (07:50→13:13)
[2022-05-11] MEDS ORDERED: BUMETANIDE 1MG/4ML VIAL IV SCH (08:45)
[2022-05-11] MEDS: GLIMEPIRIDE 2MG TABLET PO SCH (08:56)
[2022-05-11] MEDS: HEPARIN 5000 UNITS/ML VIAL IV PRN (08:57)
[2022-05-11] MEDS: INSULIN LISPRO 100 UNITS/ML SUBCUT SCH ×2 (08:59→13:16)
[2022-05-11] MEDS: LOSARTAN POTASSIUM 25 MG TABLET PO SCH (09:17)
[2022-05-11] MEDS: AMIODARONE HCL 200 MG TABLET PO SCH ×2 (09:17→16:35)
[2022-05-11] MEDS: FAMOTIDINE 20MG TABLET PO SCH ×2 (09:17→16:35)
[2022-05-11] MEDS: CLOPIDOGREL 75MG TABLET PO SCH (09:18)
[2022-05-11] MEDS: LINAGLIPTIN 5MG TABLET PO SCH (09:18)
[2022-05-11] MEDS: ASPIRIN 81MG EC TABLET PO SCH (09:19)
[2022-05-11 11:18] LABS: BG BASE EXCESS 2.3 mmol/L (-2.0-2.0); BG CARBOXYHEMOGLOBIN 1.1 % (0.5-1.5); BG DEOXYHEMOGLOBIN 45.3 % (0.0-5.0); BG HCO3 ACT 26.9 mmol/L (22.0-26.0); BG METHEMOGLOBIN 0.4 % (0.0-1.5); BG OXYHEMOGLOBIN 53.2 % (94.0-97.0); BG PCO2 41.3 mmHg (35.0-45.0); BG PH 7.431 (7.350-7.450); BG PO2 < 30.3 mmHg (75.0-100.0); BG SAMPLE SITE CL; BG TOTAL HEMOGLOBIN 15.2 g/dL (12.0-18.0); BG VENT MODE ROOM AIR
[2022-05-11 14:10] LABS: BG BASE EXCESS 3.2 mmol/L (-2.0-2.0); BG CARBOXYHEMOGLOBIN 1.3 % (0.5-1.5); BG DEOXYHEMOGLOBIN 42.9 % (0.0-5.0); BG HCO3 ACT 27.8 mmol/L (22.0-26.0); BG METHEMOGLOBIN 0.2 % (0.0-1.5); BG OXYGEN SATURATION 56.4 % (92.0-98.5); BG OXYHEMOGLOBIN 55.6 % (94.0-97.0); BG PCO2 41.8 mmHg (35.0-45.0); BG PO2 < 30.3 mmHg (75.0-100.0); BG SAMPLE SITE VBG - N/A; BG TOTAL HEMOGLOBIN 15.5 g/dL (12.0-18.0); BG VENT MODE ROOM AIR
[2022-05-11] MEDS: NOREPINEPHRINE 32 MG in DEXT 5% WATER 218 ML IV PRN (14:51)
[2022-05-11] MEDS: HEPARIN 25,000 UNITS PREMIX 250 ML IV PRN (14:55)
== END 2022-05-11 17:50 | disposition short-term general hospital (02) | DRG 194 ==
LOC: ER 11:14 → 5EST 13:23 → EDBEDREQ 13:25 → EDBEDREQTM 13:25 → CANRESERV 14:48 → ENRESERV 14:48 → EDBEDREQSVC 15:09 → ENRESERV 20:09 → 5EST 05-05 17:25 → CVICU 05-07 14:30
PROVIDERS: ADMIT Hospitalist; ATTEND Hospitalist
PROC: B24BZZ4 Ultrasonography of Heart with Aorta, Transesophageal (ICD-10-PCS; principal; 2022-05-05)
PROC: 05HB33Z Insertion of Infusion Device into Right Basilic Vein, Percutaneous Approach (ICD-10-PCS; 2022-05-09)
PROC: B54MZZA Ultrasonography of Right Upper Extremity Veins, Guidance (ICD-10-PCS; 2022-05-09)
PROC: 5A1935Z Respiratory Ventilation, Less than 24 Consecutive Hours (ICD-10-PCS; 2022-05-10)
DX: I11.0 Hypertensive heart disease with heart failure (principal); R57.0 Cardiogenic shock; N17.9 Acute kidney failure, unspecified; E44.0 Moderate protein-calorie malnutrition; E11.9 Type 2 diabetes mellitus without complications; I48.20 Chronic atrial fibrillation, unspecified; E78.00 Pure hypercholesterolemia, unspecified; Z79.01 Long term (current) use of anticoagulants; I25.10 Atherosclerotic heart disease of native coronary artery without angina pectoris; I50.23 Acute on chronic systolic (congestive) heart failure; E78.5 Hyperlipidemia, unspecified; E87.6 Hypokalemia; I48.91 Unspecified atrial fibrillation; R74.01 Elevation of levels of liver transaminase levels; Z68.27 Body mass index [BMI] 27.0-27.9, adult; Z95.5 Presence of coronary angioplasty implant and graft; Z79.02 Long term (current) use of antithrombotics/antiplatelets; Z79.84 Long term (current) use of oral hypoglycemic drugs; Z79.899 Other long term (current) drug therapy; Z82.49 Family history of ischemic heart disease and other diseases of the circulatory system; Z86.73 Personal history of transient ischemic attack (TIA), and cerebral infarction without residual deficits; Z91.19 Patient's noncompliance with other medical treatment and regimen
CPT/HCPCS: 36415; 36573; 36600; 71045; 76700; 80048; 80053; 80061; 80076; 82375; 82805; 82962; 83036; 83605; 83735; 83880; 84100; 84439; 84443; 84484; 85025; 85027; 87426; 92960; 93005; 93308; 93312; 93970; 97116; 97162; 97166; 99291; C1725; C9803; J0282; J1250; J1644; J1815; J1940; J2370; J2405; J2704; J3490; J7060